=== PATIENT | male | born 2005 | race Caucasian/White ===

== ENCOUNTER 2025-03-14 10:58 | Emergency (ER) | payer MEDICAID, OTHER ==
[~2025-03-14] VITALS: Ht 182.9 cm; Wt 55.0 kg
[~2025-03-14 10:58] MED LIST: ALBU18HF2 IH; FLUT1DIS3 INH; IPRA3AMP9 NEB; P20 MT
[2025-03-14] MEDS: IPRATROPIUM BROMIDE (0.02%) 0.5MG/2.5ML NEB HHN STA (11:18)
[2025-03-14] MEDS: ALBUTEROL (0.083%) 2.5MG/3ML NEB HHN STA (11:18)
[2025-03-14] MEDS: PREDNISONE 20MG TABLET PO STA (11:58)
[2025-03-14 13:01] VITALS: PULSE 75; RESP 17; O2SAT 98
[2025-03-14] MEDS ORDERED: ALBU18HF2 IH (13:01)
[2025-03-14 13:40] VITALS: BP 107/65; PULSE 70; RESP 15; TEMP 36.8; O2SAT 98
== END 2025-03-14 13:41 | disposition home or self-care (01) ==
LOC: ER 10:58
DX: J45.901 Unspecified asthma with (acute) exacerbation (principal); Z76.0 Encounter for issue of repeat prescription; Z79.51 Long term (current) use of inhaled steroids; Z79.52 Long term (current) use of systemic steroids
CPT/HCPCS: 71045; 94640; 93005; 99291; J7512; Z7610 ×3; 94070; 94664

== ENCOUNTER 2025-05-29 14:16 | Emergency (ER) | payer MEDICAID ==
[~2025-05-29] VITALS: Ht 182.9 cm; Wt 60.0 kg
[2025-05-29 14:23] VITALS: O2SAT 97
[2025-05-29 14:26] VITALS: BP 94/68; PULSE 80; RESP 18; TEMP 36.9; O2SAT 98
[2025-05-29] MEDS ORDERED: PREDNISONE 20MG TABLET PO ONE (15:00)
[2025-05-29] MEDS ORDERED: ALBUTEROL (0.083%) 2.5MG/3ML NEB HHN SCH (15:00)
[2025-05-29] MEDS ORDERED: IPRATROPIUM BROMIDE (0.02%) 0.5MG/2.5ML NEB HHN SCH (15:00)
[2025-05-29] MEDS ORDERED: FLUT1DIS3 INH (15:44)
[2025-05-29] MEDS ORDERED: ALBU18HF2 IH (15:44)
[2025-05-29] MEDS ORDERED: P20 MT (15:45)
== END 2025-05-29 17:07 | disposition home or self-care (01) ==
LOC: ER 14:17
DX: J45.901 Unspecified asthma with (acute) exacerbation (principal); F12.90 Cannabis use, unspecified, uncomplicated; Z79.51 Long term (current) use of inhaled steroids
CPT/HCPCS: 99283